=== PATIENT | female | born 1950 | race Caucasian/White ===

== ENCOUNTER 2022-01-24 06:25 | Observation (INO) ==
[2022-01-24] MEDS ORDERED: CeFAZolin Syr 2,000MG/20 ML 2,000 MG/20 ML SYRINGE IVPB ONE (06:42)
[2022-01-24] MEDS ORDERED: Ringers Solution, Lactated 1,000 ML IVC SCH (06:45)
[2022-01-24] MEDS ORDERED: *HR* OxyCODONE Immed Rel 5 MG TABLET PO ONE (07:00)
[2022-01-24] MEDS ORDERED: Famotidine 20 MG TABLET PO ONE (07:00)
[2022-01-24] MEDS ORDERED: Bupivacaine/EPI 1:200k 0.25% 50 ML VIAL ONE (07:13)
[2022-01-24] MEDS ORDERED: Bupivacaine-MPF 0.25% 10 ML VIAL ONE (07:13)
[2022-01-24] MEDS ORDERED: *HR* FentaNYL (PF) 100 MCG/2 ML VIAL ONE ×2 (07:25→09:16)
[2022-01-24] MEDS ORDERED: *HR* Propofol 200 MG/20 ML VIAL IVP ONE (07:25)
[2022-01-24] MEDS ORDERED: Lidocaine HCL 4 ML Topical Solution (Laryng-O-Jet Kit Sterile Pak) TP ONE (07:26)
[2022-01-24] MEDS ORDERED: *HR* Succinylcholine 200 MG/10 ML VIAL IVP ONE (07:29)
[2022-01-24] MEDS ORDERED: Lidocaine -MPF 2% 5 ML VIAL ONE (07:29)
[2022-01-24] MEDS ORDERED: Ondansetron 4 MG/2 ML VIAL ONE (08:05)
[2022-01-24] MEDS ORDERED: Acetaminophen IV 1,000 MG/100 ML BAG IVPB ONE (08:09)
[2022-01-24] MEDS ORDERED: Vancomycin 1,000 MG VIAL ONE (09:38)
[2022-01-24] MEDS ORDERED: Ketorolac 30 MG/ML VIAL ONE (09:49)
[2022-01-24] MEDS ORDERED: *HR* Labetalol 20 MG/4 ML SYRINGE IVP ONE (09:57)
[2022-01-24] MEDS ORDERED: Ipratropium/Albuterol Neb 3 ML ONE (10:20)
[2022-01-24] MEDS ORDERED: Ipratropium/Albuterol Neb 3 ML IH ONE (10:21)
[2022-01-24] MEDS: *HR* HYDROmorphone (PF) 1 MG/ML SYRINGE IVP PRN ×3 (10:42→11:04)
[2022-01-24] MEDS ORDERED: Naloxone 0.4 MG/ML INJ IVP PRN (12:12)
[2022-01-24] MEDS ORDERED: Ondansetron 4 MG/2 ML VIAL IVP PRN (12:12)
[2022-01-24] MEDS: *HR* OxyCODONE Immed Rel 5 MG TABLET PO PRN ×2 (16:18→22:53)
[2022-01-24] MEDS: CeFAZolin 2 GM/120 ML BAG IVPB SCH ×2 (17:48→22:53)
[2022-01-24] MEDS: tiZANidine 4 MG TABLET PO SCH (20:14)
[2022-01-24] MEDS: Budesonide/Formoterol 160/4.5 1 PUFF INH IH SCH (20:49)
[2022-01-25] MEDS: Acetaminophen 325 MG TABLET PO PRN ×3 (00:22→18:46)
[2022-01-25] MEDS: *HR* OxyCODONE Immed Rel 5 MG TABLET PO PRN ×3 (06:09→20:52)
[2022-01-25] MEDS: Ondansetron 4 MG/2 ML VIAL IVP PRN ×2 (06:33→14:33)
[2022-01-25] MEDS: tiZANidine 4 MG TABLET PO SCH (08:52)
[2022-01-25] MEDS: OLODATEROL HCL PO SCH (08:54)
[2022-01-25] MEDS: amLODIPine 5 MG TABLET PO SCH (08:54)
[2022-01-25] MEDS: Budesonide/Formoterol 160/4.5 1 PUFF INH IH SCH ×2 (10:11→20:57)
[2022-01-26] MEDS: amLODIPine 5 MG TABLET PO SCH (08:50)
[2022-01-26] MEDS: tiZANidine 4 MG TABLET PO SCH (08:50)
[2022-01-26] MEDS: Acetaminophen 325 MG TABLET PO PRN (08:51)
[2022-01-26] MEDS: OLODATEROL HCL PO SCH (09:12)
[2022-01-26] MEDS: Budesonide/Formoterol 160/4.5 1 PUFF INH IH SCH ×2 (10:45→21:01)
[2022-01-26] MEDS: *HR* OxyCODONE Immed Rel 5 MG TABLET PO PRN (11:47)
[2022-01-26] MEDS: Ondansetron 4 MG/2 ML VIAL IVP PRN (13:20)
[2022-01-26] MEDS ORDERED: *HR* Promethazine 25 MG/ML VIAL IM PRN (17:26)
[2022-01-27 05:46] VITALS: BP 128/58; PULSE 80; TEMP 98.9; O2SAT 93
[2022-01-27] MEDS: Budesonide/Formoterol 160/4.5 1 PUFF INH IH SCH (07:44)
[2022-01-27] MEDS: amLODIPine 5 MG TABLET PO SCH (07:56)
[2022-01-27] MEDS: tiZANidine 4 MG TABLET PO SCH (07:56)
[2022-01-27] MEDS: OLODATEROL HCL PO SCH (08:06)
== END 2022-01-27 11:30 | disposition home health service (06) ==
LOC: SDCAOSI 06:25 → 4WAOSI 06:25
PROVIDERS: ADMIT Student in an Organized Health Care Education/Training Program; ATTEND Student in an Organized Health Care Education/Training Program